=== PATIENT | female | born 1940 | race American Indian/Alaskan Native ===

== ENCOUNTER 2017-09-19 13:10 | Inpatient (IN) | payer MEDICARE ==
[2017-09-19 13:19] VITALS: BMI 33.5
--- NOTE | 2017-09-19 13:40 | C.PDOC ---
History Of Present Illness 77 year old female presents to ED complaining of worsening shortness of breath, dyspnea on exertion, and leg swelling for the past week. Denies chest pain, fever, or cough. Also complains of intermittent dizziness, is on HCTZ. Pt has history of CHF, prior PE but no anticoag for the past 2-3 years. WORSENING SOB, STONE LEG SWELLING X 1 WEEK. NO CP, FEVER, COUGH. ALSO CO INTERMIT DIZZYNESS. ON HCTZ. HO CHF, PRIOR PE BUT NO ANTICOAG X 2-3 YEARS. "YESTERDAY FELT LIKE ROOM SPINNING BUT NOW I JUST FEEL LIGHTHEADED" EXAM NARD NONTOXIC LUNGS CTA B/L NO W/R/R SPEAKING FUL LSENTENCES CV RRR 2+PITTING EDEMA BL REMAINDER NEG NON CPH PMD Time Seen by Provider: 09/19/17 13:24 Chief Complaint (Nursing): Cough, Cold, Congestion History Per: Patient History/Exam Limitations: no limitations Onset/Duration Of Symptoms: Days Current Symptoms Are (Timing): Still Present Exacerbating Factor(s): Exertion Associated Symptoms: Ankle/Leg Swelling, Dizziness. denies: Sweating, Chest Pain, Productive Cough, Heart Racing, Leg/Calf Pain Recent travel outside of the [place]: No Additional History Per: Patient Past Medical History Reviewed: Historical Data, Nursing Documentation, Vital Signs Vital Signs: Last Vital Signs Temp 98.7 F 09/19/17 13:50 Pulse 66 09/19/17 17:58 Resp 13 09/19/17 17:58 BP 157/68 H 09/19/17 17:58 Pulse Ox 97 09/19/17 18:06 - Medical History PMH: Back Problems (herniated disc), CHF, HTN Family History: States: Unknown Family Hx - Social History Hx Tobacco Use: No Hx Alcohol Use: No Hx Substance Use: No - Immunization History Hx Tetanus Toxoid Vaccination: No Hx Influenza Vaccination: No Hx Pneumococcal Vaccination: No Review Of Systems Except As Marked, All Systems Reviewed And Found Negative. Constitutional: Negative for: Fever, Chills Cardiovascular: Positive for: Edema. Negative for: Chest Pain, Palpitations Respiratory: Positive for: Shortness of Breath, SOB with Excertion. Negative for: Cough, Sputum Gastrointestinal: Negative for: Nausea, Vomiting, Abdominal Pain Neurological: Positive for: Dizziness. Negative for: Headache Physical Exam - Physical Exam Appears: Non-toxic, No Acute Distress Skin: Normal Color, Warm, Dry Head: Atraumatic, Normacephalic Eye(s): bilateral: Normal Inspection Oral Mucosa: Moist Neck: Normal ROM, Supple Chest: Symmetrical Cardiovascular: Rhythm Regular, No Murmur Respiratory: Normal Breath Sounds, No Accessory Muscle Use, No Rales, No Rhonchi , No Wheezing, Other (speaking in full sentences) Gastrointestinal/Abdominal: Soft, No Tenderness Extremity: Normal ROM, Pedal Edema (+2 pitting edema bilaterally), No Deformity Neurological/Psych: Oriented x3, Normal Speech ED Course And Treatment - Laboratory Results Result Diagrams: 09/19/17 14:21 09/19/17 14:21 ECG: Interpreted By Me ECG Rhythm: Sinus Bradycardia ECG Interpretation: Normal Rate From EC O2 Sat by Pulse Oximetry: 97 (RA) Pulse Ox Interpretation: Normal - Radiology CXR: Interpreted by Me CXR Interpretation: Yes: Other (ROTATED, TORTUOUS AORT) Progress - Re-Evaluation Re-evaluation Note: 09/19/17 15:36 CO PERSIST LIGHTHEADEDNESS. VSS. BNP NEG. WILL CTA 09/19/17 17:53 VSS. D/W DR VAHID NGUYEN SAW RUNNER WILL ADMIT 09/19/17 18:06 DIZZYNESS IMPROVED SP MECLIZINE. PT NOTED TO BE NEW ONSET ATRIAL FLUTTER ON MONITOR STRIP. APPEARS COMFORTABLE NAD 09/19/17 18:17 REPEAT EKG AFLUTTER @57 - Data Reviewed Data Reviewed: Lab, Diagnostic imaging, EKG, Old records Medical Decision Making Medical Decision Making: Plan: Blood work CXR/EKG Lasix Reassess Disposition Counseled Patient/Family Regarding: Studies Performed, Diagnosis - Disposition Disposition: HOSPITALIZED Disposition Time: 17:54 Condition: STABLE - POA Present On Arrival: None - Clinical Impression Clinical Impression: Dyspnea, Dizziness, New onset atrial flutter - Scribe Statement The provider has reviewed the documentation as recorded by the Scribe KP All medical record entries made by the Scribe were at my direction and personally dictated by me. I have reviewed the chart and agree that the record accurately reflects my personal performance of the history, physical exam, medical decision making, and the department course for this patient. I have also personally directed, reviewed, and agree with the discharge instructions and disposition. Decision To Admit - Pt Status Changed To: Hospital Disposition Of: Inpatient - Admit Certification Admit to Inpatient:: After my assessment, the patient will require hospitalization for at least two midnights. This is because of the severity of symptoms shown, intensity of services needed, and/or the medical risk in this patient being treated as an outpatient. - InPatient: Physician Admission Certification: I certify that this patient requires 2 or more midnights of care for the following reason:: SEE NOTE - . Bed Request Type: Telemetry Admitting Physician: Prerna Roy Patient Diagnosis: Dyspnea, Dizziness, New onset atrial flutter
[2017-09-19 14:23] LABS: RBC 3.62 Mil/uL (3.80-5.20); WHITE BLOOD COUNT 7.9 K/uL (4.8-10.8)
[2017-09-19 14:24] LABS: BASO # 0.1 K/uL (0.0-0.2); BASO % 0.7 % (0.0-2.0); EOS # 0.1 K/uL (0.0-0.7); EOS % 1.4 % (0.0-4.0); HEMOGLOBIN 9.8 g/dL (11.0-16.0); LYMPH # 2.3 K/uL (1.0-4.3); LYMPH % 28.4 % (20.0-40.0); MEAN CORPUSCULAR HEMOGLOBIN 27.1 pg (27.0-31.0); MEAN CORPUSCULAR HGB CONC 33.1 g/dL (33.0-37.0); MEAN PLATELET VOLUME 8.4 fL (7.2-11.7); MONO # 0.7 K/uL (0.0-0.8); MONO % 9.4 % (0.0-10.0); NEUT # 4.8 K/uL (1.8-7.0); NEUT % 60.1 % (50.0-75.0); NRBC % 0.1 % (0.0-2.0); RED CELL DISTRIBUTION WIDTH 17.8 % (11.5-14.5)
[2017-09-19 14:35] LABS: ALB/GLOB RATIO 1.1 (1.0-2.1); ALBUMIN 4.2 g/dL (3.5-5.0); CALCIUM 9.9 mg/dl (8.6-10.4); GFR AFRICAN-AMERICAN > 60; GFR NON-AFRICAN AMERICAN 54
[2017-09-19 14:39] LABS: ALT/SGPT 22 U/L (9-52); AST/SGOT 29 U/L (14-36); BLOOD UREA NITROGEN 15 mg/dL (7-17)
[2017-09-19 14:47] LABS: B-TYPE NATRIURETIC PEPTIDE 512 pg/mL (0-900)
[2017-09-19] MEDS ORDERED: Iodixanol 320 MG/ML 100 ML BOTTLE IV ONE (15:28)
--- NOTE | 2017-09-19 16:41 | CT ---
Date of service: 09/19/2017 PROCEDURE: CT HEAD WITHOUT CONTRAST. HISTORY: DIZZY COMPARISON: None available. TECHNIQUE: Axial computed tomography images were obtained through the head/brain without intravenous contrast. Radiation dose: Total exam DLP = 955.19 mGy-cm. This CT exam was performed using one or more of the following dose reduction techniques: Automated exposure control, adjustment of the mA and/or kV according to patient size, and/or use of iterative reconstruction technique. FINDINGS: HEMORRHAGE: No intracranial hemorrhage. BRAIN: The quinones-white matter differentiation is well preserved. There is no mass effect or definitive edema pattern appreciated including the cortex. There is proportional expansion of the ventriculosulcal and cisternal spaces however in a pattern most compatible with diffuse cerebral atrophy. No suspicious extra-axial fluid collection is identified in the midline brain anatomy appears grossly nonfocal as imaged. No atrophy or chronic microvascular ischemic changes. VENTRICLES: Unremarkable. No hydrocephalus. CALVARIUM: Unremarkable. PARANASAL SINUSES: Unremarkable as visualized. No significant inflammatory changes. MASTOID AIR CELLS: Right mastoid effusions identified. Left mastoid air cells appear clear. OTHER FINDINGS: None. IMPRESSION: No definite acute CT findings on standard noncontrast head CT. Age-appropriate neuro degenerative findings are appreciated as discussed above. Follow-up CT or MRI are available if clinically warranted.
--- NOTE | 2017-09-19 17:17 | CT ---
Date of service: 09/19/2017 PROCEDURE: CT Chest with contrast (Pulmonary Angiogram) HISTORY: SOB r/o PE COMPARISON: None available. TECHNIQUE: Axial computed tomography images were obtained of the chest in the pulmonary arterial phase of enhancement. Coronal and sagittal reformatted images were created and reviewed. Intravenous contrast dose: Visipaque 320, 100 cc Radiation dose: Total exam DLP = 586.98 mGy-cm. This CT exam was performed using one or more of the following dose reduction techniques: Automated exposure control, adjustment of the mA and/or kV according to patient size, and/or use of iterative reconstruction technique. FINDINGS: PULMONARY ARTERIES: Unremarkable. No pulmonary embolism. AORTA: No acute findings. No thoracic aortic aneurysm. LUNGS: The trachea and esophagus are displaced to the right by a large partially calcified mass. Please see (Other findings) section described below. No intrinsic nodule, mass or pulmonary consolidation. PLEURAL SPACES: Unremarkable. No effusion or pneumothorax. HEART: Unremarkable. No cardiomegaly. No significant pericardial effusion. LYMPH NODES: No lymphadenopathy. BONES, CHEST WALL: Unremarkable. No fracture or destructive lesion OTHER FINDINGS: Partially calcified mass at the substernal space at the thoracic inlet measuring 8.7 x 5.1 cm (transverse by anteroposterior dimensions potentially representing a substernal goiter. Follow-up nuclear thyroid scan may confirm. Trace cholelithiasis incidentally noted in gallbladder. IMPRESSION: 1. No CT evidence of pulmonary embolus. 2. No acute infiltrate, pleural effusion or pneumothorax. Shotty mediastinal lymph nodes are identified. 3. There is a large anterior superior mediastinal mass measuring 8.7 x 5.[address] the trachea and esophagus rightward potentially reflecting a partially calcified goiter. Follow-up elective in nuclear thyroid scan advised.
--- NOTE | 2017-09-19 18:21 | RAD ---
Date of service: 09/19/2017 PROCEDURE: CHEST RADIOGRAPH, 1 VIEW HISTORY: SOB COMPARISON: None available. FINDINGS: LUNGS: No definite infiltrate identified bilaterally. PLEURA: No pneumothorax or pleural fluid seen. CARDIOVASCULAR: Cardiac size is borderline enlarged. The upper mediastinum is quite widened which could be a function of thoracic aortic aneurysm or lymphadenopathy. Substernal thyroid gland is a possibility as well. See separate chest CT also performed 09/19/2017. OSSEOUS STRUCTURES: No significant abnormalities. VISUALIZED UPPER ABDOMEN: Normal. OTHER FINDINGS: None. IMPRESSION: No acute infiltrate pleural effusion or pneumothorax bilaterally. Prominent widening of the mediastinum is identified however. Please see separate chest CT performed 09/19/2017 as well as discussion above.
[2017-09-20] MEDS ORDERED: Simethicone 80 mg Chewtab PO ONE (04:32)
[2017-09-20 09:01] LABS: BASO % 0.4 % (0.0-2.0); EOS # 0.1 K/uL (0.0-0.7); EOS % 1.3 % (0.0-4.0); HEMOGLOBIN 9.2 g/dL (11.0-16.0); LYMPH # 2.7 K/uL (1.0-4.3); LYMPH % 35.2 % (20.0-40.0); MEAN CELL VOLUME 82.2 fL (81.0-99.0); MEAN CORPUSCULAR HEMOGLOBIN 26.7 pg (27.0-31.0); MEAN CORPUSCULAR HGB CONC 32.5 g/dL (33.0-37.0); MEAN PLATELET VOLUME 8.6 fL (7.2-11.7); MONO # 0.9 K/uL (0.0-0.8); MONO % 11.9 % (0.0-10.0); NEUT % 51.2 % (50.0-75.0); NRBC % 0.1 % (0.0-2.0); RBC 3.44 Mil/uL (3.80-5.20); RED CELL DISTRIBUTION WIDTH 17.6 % (11.5-14.5); WHITE BLOOD COUNT 7.8 K/uL (4.8-10.8)
[2017-09-20] MEDS: Enoxaparin 40 mg Syringe SC SCH (09:30)
[2017-09-20] MEDS ORDERED: HYDROCHLOROTHIAZIDE 25 MG PO SCH (10:00)
[2017-09-20 10:02] LABS: ALB/GLOB RATIO 1.1 (1.0-2.1); ALBUMIN 3.9 g/dL (3.5-5.0); CALCIUM 9.9 mg/dl (8.6-10.4)
--- NOTE | 2017-09-20 11:13 | CP.PCM.CON ---
History of Present Illness - History of Present Illness History of Present Illness: I was asked to see patient by Dr Roy. Patient is a 77 year old female with PMH HTN, hyperchoelsterolemia who presents with dyspnea on exertion. The patient states symptoms occur after walking one block. She has to stop for symptoms to improve. Her symptoms occur after walking one block. In the ER, EKG revealed atrial fibrillation. The patient has no documented history of afib, Review of Systems - Constitutional Constitutional: absent: As Per HPI, Anorexia, Chills, Daytime Sleepiness, Excessive Sweating, Fatigue, Fever, Frequent Falls, Headache, Increased Appetite , Lethargy, Malaise, Night Sweats, Snoring, Sleep Apnea, Weight Gain, Weight Loss, Weakness, Other - EENT Eyes: absent: As Per HPI, Blind Spots, Blurred Vision, Change in Vision, Decreased Night Vision, Diplopia, Discharge, Dry Eye, Exophthalmos, Floaters, Irritation, Itchy Eyes, Loss of Peripheral Vision, Pain, Photophobia, Requires Corrective Lenses, Sees Flashes, Spots in Vision, Tunnel Vision, Other Visual Disturbances, Loss of Vision, Other Ears: absent: As Per HPI, Decreased Hearing, Ear Discharge, Ear Pain, Tinnitus, Abnormal Hearing, Disequilibrium, Dizziness, Other Nose/Mouth/Throat: absent: As Per HPI, Epistaxis, Nasal Congestion, Nasal Discharge, Nasal Obstruction, Nasal Trauma, Nose Pain, Post Nasal Drip, Sinus Pain, Sinus Pressure, Bleeding Gums, Change in Voice, Dental Pain, Dry Mouth, Dysphagia, Halitosis, Hoarsness, Lip Swelling, Mouth Lesions, Mouth Pain, Odynophagia, Sore Throat, Throat Swelling, Tongue Swelling, Facial Pain, Neck Pain, Neck Mass, Other - Breasts Breasts: absent: As Per HPI, Change in Shape, Mass, Pain, Nipple Discharge, Nipple Inversion, Skin Changes, Swelling, Other - Cardiovascular Cardiovascular: Dyspnea, Dyspnea on Exertion - Respiratory Respiratory: Dyspnea - Gastrointestinal Gastrointestinal: absent: As Per HPI, Abdominal Pain, Belching, Bloating, Change in Bowel Habits, Change in Stool Character, Coffee Ground Emesis, Constipation, Cramping, Diarrhea, Dyspepsia, Dysphagia, Early Satiety, Excessive Flatus, Fecal Incontinence, Heartburn, Hematemesis, Hematochezia, Loose Stools, Melena, Nausea, Odynophagia, Temesmus, Vomiting, Other - Genitourinary Genitourinary: absent: As Per HPI, Change in Urinary Stream, Difficulty Urinating, Dysuria, Flank Pain, Hematuria, Pyuria, Nocturia, Urinary Incontinence, Urinary Frequency, Urinary Hesitance, Urinary Urgency, Voiding Freq/Small Amts, Freq UTI, Hx Renal/Bladder Calculi, Hx /Renal Surgery, Bladder Distension, Other - Musculoskeletal Musculoskeletal: absent: As Per HPI, Abnormal Gait, Arthralgias, Atrophy, Back Pain, Deformity, Joint Swelling, Limited Range of Motion, Loss of Height, Muscle Cramps, Muscle Weakness, Myalgias, Neck Pain, Numbness, Radiating Pain into Limb, Stiffness, Tingling, Other - Integumentary Integumentary: absent: As Per HPI, Acne, Alopecia, Bleeding Lesions, Change in Hair, Change in Nails, Change in Pigmentation, Changing Lesions, Dry Skin, Erythema, Furuncle, Hirsutism, Lesions, New Lesions, Non-Healing Lesions, Photosensitivity, Pruritus, Rash, Skin Pain, Skin Ulcer, Sores, Striae, Swelling , Unusual Bruising, Wounds, Jaundice, Other - Neurological Neurological: absent: As Per HPI, Abnormal Gait, Abnormal Hearing, Abnormal Movements, Abnormal Speech, Behavioral Changes, Burning Sensations, Confusion, Convulsions, Disequilibrium, Dizziness, Numbness, Focal Weakness, Frequent Falls , Headaches, Lack of Coordination, Loss of Vision, Memory Loss, Paresthesias, Radicular Pain, Restless Legs, Sensory Deficit, Syncope, Tingling, Tremor, Vertigo, Weakness, Other Visual Disturbances, Other - Psychiatric Psychiatric: absent: As Per HPI, Abnormal Sleep Pattern, Anhedonia, Anxiety, Auditory Hallucinations, Behavioral Changes, Change in Appetite, Change in Libido, Confusion, Depression, Difficulty Concentrating, Hallucinations, Homicidal Ideation, Hopelessness, Irritability, Memory Loss, Mood Swings, Panic Attacks, Paranoia, Suicidal Ideation, Visual Hallucinations, Tactile Hallucinations, Other - Endocrine Endocrine: absent: As Per HPI, Change in Body Appearance, Change in Libido, Cold Intolorance, Deepening of Voice, Excessive Sweating, Fatigue, Flushing, Heat Intolorance, Increase in Ring/Shoe/Hat Size, Palpitations, Polydipsia, Polyphagia, Polyuria, Other - Hematologic/Lymphatic Hematologic: absent: As Per HPI, Easy Bleeding, Easy Bruising, Lymphadenopathy, Other Past Patient History - Past Medical History & Family History Past Medical History?: Yes - Past Social History Smoking Status: Never Smoked - CARDIAC Hx Congestive Heart Failure: Yes Hx Hypertension: Yes - PULMONARY Hx Respiratory Disorders: No - NEUROLOGICAL Hx Neurological Disorder: No - HEENT Hx HEENT Problems: Yes Hx Glaucoma: Yes - RENAL Hx Chronic Kidney Disease: No - ENDOCRINE/METABOLIC Hx Endocrine Disorders: No - HEMATOLOGICAL/ONCOLOGICAL Hx Anemia: Yes - INTEGUMENTARY Hx Dermatological Problems: No - MUSCULOSKELETAL/RHEUMATOLOGICAL Hx Back Pain: Yes (sciatica) Hx Falls: No - GASTROINTESTINAL Hx Gastrointestinal Disorders: No - GENITOURINARY/GYNECOLOGICAL Hx Genitourinary Disorders: No - PSYCHIATRIC Hx Substance Use: No - SURGICAL HISTORY Hx Surgeries: Yes Other/Comment: R kidney removed. - ANESTHESIA Hx Anesthesia: Yes Hx Anesthesia Reactions: No Hx Malignant Hyperthermia: No Has any member of the family had a problem w/ anesthesia?: No Meds Allergies/Adverse Reactions: Allergies Allergy/AdvReac Type Severity Reaction Status Date / Time No Known Allergies Allergy Verified 09/19/17 13:18 - Medications Medications: Current Medications Aspirin (Ecotrin) 81 mg PO DAILY [facility] Last Admin: 09/20/17 09:30 Dose: 81 mg Carvedilol (Coreg) 25 mg PO BID [facility] Last Admin: 09/20/17 10:38 Dose: 25 mg Enoxaparin Sodium (Lovenox) 40 mg SC DAILY [facility] Last Admin: 09/20/17 09:30 Dose: 40 mg Hydrochlorothiazide (Hydrodiuril) 25 mg PO DAILY [facility] Last Admin: 09/20/17 09:31 Dose: 25 mg Losartan Potassium (Cozaar) 50 mg PO DAILY [facility] Last Admin: 09/20/17 10:38 Dose: 50 mg Zolpidem Tartrate (Ambien) 5 mg PO HS [facility] Last Admin: 09/19/17 22:33 Dose: 5 mg Physical Exam - Constitutional Appears: Non-toxic - Head Exam Head Exam: NORMAL INSPECTION - Eye Exam Eye Exam: Normal appearance - ENT Exam ENT Exam: Mucous Membranes Moist - Neck Exam Neck exam: Positive for: Full Rom - Respiratory Exam Respiratory Exam: NORMAL BREATHING PATTERN - Cardiovascular Exam Cardiovascular Exam: REGULAR RHYTHM - GI/Abdominal Exam GI & Abdominal Exam: Normal Bowel Sounds - Rectal Exam Rectal Exam: Deferred - Extremities Exam Extremities exam: Positive for: pedal edema - Back Exam Back exam: NORMAL INSPECTION - Neurological Exam Neurological exam: Alert, Oriented x3 - Psychiatric Exam Psychiatric exam: Normal Affect - Skin Skin Exam: Normal Color Results - Vital Signs Recent Vital Signs: Last Vital Signs Temp 97.8 F 09/20/17 07:55 Pulse 71 09/20/17 09:32 Resp 20 09/20/17 07:55 BP 123/73 09/20/17 10:38 Pulse Ox 97 09/20/17 07:55 - Labs Result Diagrams: 09/20/17 08:42 09/20/17 08:00 Labs: Laboratory Results - last 24 hr 09/19/17 09/19/17 09/20/17 14:21 14:21 08:00 WBC 7.9 RBC 3.62 L Hgb 9.8 L D Hct 29.7 L MCV 82.0 D MCH 27.1 MCHC 33.1 RDW 17.8 H Plt Count 235 MPV 8.4 Neut % (Auto) 60.1 Lymph % (Auto) 28.4 [place] % (Auto) 9.4 Eos % (Auto) 1.4 Baso % (Auto) 0.7 Neut # (Auto) 4.8 Lymph # (Auto) 2.3 [place] # (Auto) 0.7 Eos # (Auto) 0.1 Baso # (Auto) 0.1 Sodium 140 142 Potassium 4.3 4.1 Chloride 104 104 Carbon Dioxide 26 29 Anion Gap 15 13 BUN 15 17 Creatinine 1.0 1.2 Est GFR ( Amer) > 60 53 Est GFR (Non-Af Amer) 54 43 Random Glucose 116 H 99 Calcium 9.9 9.9 Total Bilirubin 0.7 0.5 AST 29 25 ALT 22 18 Alkaline Phosphatase 68 61 Troponin I < 0.0120 NT-Pro-B Natriuret Pep 512 Total Protein 8.1 7.4 Albumin 4.2 3.9 Globulin 3.9 3.5 Albumin/Globulin Ratio 1.1 1.1 09/20/17 08:42 WBC 7.8 RBC 3.44 L Hgb 9.2 L Hct 28.3 L MCV 82.2 MCH 26.7 L MCHC 32.5 L RDW 17.6 H Plt Count 243 MPV 8.6 Neut % (Auto) 51.2 Lymph % (Auto) 35.2 [place] % (Auto) 11.9 H Eos % (Auto) 1.3 Baso % (Auto) 0.4 Neut # (Auto) 4.0 Lymph # (Auto) 2.7 [place] # (Auto) 0.9 H Eos # (Auto) 0.1 Baso # (Auto) 0.0 Sodium Potassium Chloride Carbon Dioxide Anion Gap BUN Creatinine Est GFR ( Amer) Est GFR (Non-Af Amer) Random Glucose Calcium Total Bilirubin AST ALT Alkaline Phosphatase Troponin I NT-Pro-B Natriuret Pep Total Protein Albumin Globulin Albumin/Globulin Ratio - EKG Data EKG Interpreted by: Myself Assessment & Plan (1) Paroxysmal atrial fibrillation Assessment and Plan: current;ly in sinus rhythm. will evaluate LV function. can give Lovenox. Status: Acute (2) Dyspnea Assessment and Plan: recommend echocardiogram Status: Acute (3) HTN (hypertension) Assessment and Plan: Blood pressure therapy Status: Acute
--- NOTE | 2017-09-21 08:12 | CP.PCM.PN ---
Subjective - Date & Time of Evaluation Date of Evaluation: 09/21/17 Time of Evaluation: 08:00 - Subjective Subjective: patient has no chest pain or dyspnea at rest. Objective - Vital Signs/Intake and Output Vital Signs (last 24 hours): Temp Pulse Resp BP Pulse Ox 97.9 F 83 18 132/85 99 09/21/17 07:00 09/21/17 07:00 09/21/17 07:00 09/21/17 07:00 09/21/17 07:00 Intake and Output: 09/21/17 09/21/17 06:59 18:59 Intake Total 320 Balance 320 - Medications Medications: Current Medications Acetaminophen (Tylenol 325mg Tab) 650 mg PO Q6 PRN PRN Reason: Pain, moderate (4-7) Last Admin: 09/21/17 02:34 Dose: 650 mg Aspirin (Ecotrin) 81 mg PO DAILY [facility] Last Admin: 09/20/17 09:30 Dose: 81 mg Carvedilol (Coreg) 25 mg PO BID [facility] Last Admin: 09/20/17 18:00 Dose: Not Given Enoxaparin Sodium (Lovenox) 40 mg SC DAILY [facility] Last Admin: 09/20/17 09:30 Dose: 40 mg Hydrochlorothiazide (Hydrodiuril) 25 mg PO DAILY [facility] Last Admin: 09/20/17 09:31 Dose: 25 mg Losartan Potassium (Cozaar) 50 mg PO DAILY [facility] Last Admin: 09/20/17 10:38 Dose: 50 mg Zolpidem Tartrate (Ambien) 5 mg PO [facility] Last Admin: 09/20/17 22:25 Dose: 5 mg - Labs Labs: 09/20/17 08:42 09/20/17 08:00 - Constitutional Appears: Non-toxic - Head Exam Head Exam: NORMAL INSPECTION - Eye Exam Eye Exam: Normal appearance - ENT Exam ENT Exam: Mucous Membranes Moist - Neck Exam Neck Exam: Full ROM - Respiratory Exam Respiratory Exam: NORMAL BREATHING PATTERN - Cardiovascular Exam Cardiovascular Exam: REGULAR RHYTHM - GI/Abdominal Exam GI & Abdominal Exam: Normal Bowel Sounds - Rectal Exam Rectal Exam: Deferred - Extremities Exam Extremities Exam: absent: Pedal Edema - Back Exam Back Exam: NORMAL INSPECTION - Neurological Exam Neurological Exam: Alert - Psychiatric Exam Psychiatric exam: Normal Affect - Skin Skin Exam: Normal Color Assessment and Plan (1) Paroxysmal atrial fibrillation Assessment & Plan: currently in sinus rhythm. will obtain echocardiogram Status: Acute (2) Dyspnea Assessment & Plan: unclear etiology. await echocardiogram Status: Acute (3) HTN (hypertension) Assessment & Plan: blood pressure control Status: Acute
[2017-09-21] MEDS: Enoxaparin 40 mg Syringe SC SCH (10:49)
--- NOTE | 2017-09-21 11:41 | HP ---
HISTORY OF PRESENT ILLNESS: A 77-year-old white female with history of thromboembolism, heart failure of some sort, who was admitted to the hospital with chief complaint of acute tiredness. The patient came to hospital, advised admission. PHYSICAL EXAMINATION: GENERAL: The patient is awake, alert, oriented. VITAL SIGNS: Temperature 98, pulse 90. HEENT: Within normal limits. NECK: Supple. CHEST: Symmetrical. HEART: Regular. ABDOMEN: Soft. EXTREMITIES: No edema. ASSESSMENT AND PLAN: The patient suffers from shortness of breath, rule out heart failure, rule out cor pulmonale. Outside study for sleep apnea. The patient on bed rest, supportive care. Cardiac evaluation. Prerna Roy MD
--- NOTE | 2017-09-21 12:58 | CP.PCM.PN ---
Subjective - Date & Time of Evaluation Date of Evaluation: 09/21/17 Time of Evaluation: 12:56 - Subjective Subjective: PGY-[address] Bolton's Service Patient seen and examined at bedside. Per nursing no acute events occurred overnight. Patient reports an improvement in chest pain today. She denies any palpitations, syncopal episodes, abdominal pain ,or any other complaints. Objective - Vital Signs/Intake and Output Vital Signs (last 24 hours): Temp Pulse Resp BP Pulse Ox 97.9 F 60 18 126/73 99 09/21/17 07:00 09/21/17 07:00 09/21/17 07:00 09/21/17 10:50 09/21/17 07:00 Intake and Output: 09/21/17 09/21/17 06:59 18:59 Intake Total 320 Balance 320 - Medications Medications: Current Medications Acetaminophen (Tylenol 325mg Tab) 650 mg PO Q6 PRN PRN Reason: Pain, moderate (4-7) Last Admin: 09/21/17 10:53 Dose: 650 mg Aspirin (Ecotrin) 81 mg PO DAILY [facility] Last Admin: 09/21/17 10:49 Dose: 81 mg Carvedilol (Coreg) 25 mg PO BID [facility] Last Admin: 09/21/17 10:50 Dose: Not Given Enoxaparin Sodium (Lovenox) 40 mg SC DAILY [facility] Last Admin: 09/21/17 10:49 Dose: 40 mg Hydrochlorothiazide (Hydrodiuril) 25 mg PO DAILY [facility] Last Admin: 09/21/17 10:49 Dose: 25 mg Losartan Potassium (Cozaar) 50 mg PO DAILY [facility] Last Admin: 09/21/17 10:49 Dose: 50 mg Zolpidem Tartrate (Ambien) 5 mg PO HS [facility] Last Admin: 09/20/17 22:25 Dose: 5 mg - Labs Labs: 09/20/17 08:42 09/20/17 08:00 Assessment and Plan - Assessment and Plan (Free Text) Assessment: 77 year old female with a past medical history of hypertension, hypercholesterolemia, and pulmonary embolus(previously on Xarelto) who was admitted for paroxysmal Atrial fibrillation. Plan: 1. Paroxysmal atrial fibrillation -EKG upon admission showed atrial flutter -Cardiology consulted. Help appreciated. -Echocardiogram ordered. Will f/u with results. 2.Mediastinal mass Chest CT: No CT evidence of pulmonary embolus. 2. No acute infiltrate, pleural effusion or pneumothorax. Shotty mediastinal lymph nodes are identified. 3. There is a large anterior superior mediastinal mass measuring 8.7 x 5.1 [address] the trachea and esophagus rightward potentially reflecting a partially calcified goiter. Follow-up elective in nuclear thyroid scan advised. -TSH ordered. Will f/u with results. -Cardiothoracic surgery( Dr. Li) consulted. Help appreciated. PPX Protonix Heparin Plan discussed with Dr. Roy. Tyler Tanner, PGY-2
--- NOTE | 2017-09-22 07:25 | CP.PCM.CON ---
History of Present Illness - History of Present Illness History of Present Illness: 77F presented to [facility] ED with complaints of SOB/dyspnea and LE swelling. Cardiothoracic surgery consulted after anterior mediastinal mass was noted on CT chest. At times of examination patient denied dysphonia, dysphagia, or having SOB. She states her SOB/dyspnea has improved since admission as well as LE swelling. Patient denied fever/chills, nausea/vomiting, abdominal pain, dysuria. At this time patient is refusing any kind of surgical intervention. Review of Systems - Review of Systems Review of Systems: 12 pt ROS unremarkable except as stated in HPI Past Patient History - Past Medical History & Family History Past Medical History?: Yes - Past Social History Smoking Status: Never Smoked - CARDIAC Hx Congestive Heart Failure: Yes Hx Hypertension: Yes - PULMONARY Hx Respiratory Disorders: No - NEUROLOGICAL Hx Neurological Disorder: No - HEENT Hx HEENT Problems: Yes Hx Glaucoma: Yes - RENAL Hx Chronic Kidney Disease: No - ENDOCRINE/METABOLIC Hx Endocrine Disorders: No - HEMATOLOGICAL/ONCOLOGICAL Hx Anemia: Yes - INTEGUMENTARY Hx Dermatological Problems: No - MUSCULOSKELETAL/RHEUMATOLOGICAL Hx Back Pain: Yes (sciatica) Hx Falls: No - GASTROINTESTINAL Hx Gastrointestinal Disorders: No - GENITOURINARY/GYNECOLOGICAL Hx Genitourinary Disorders: No - PSYCHIATRIC Hx Substance Use: No - SURGICAL HISTORY Hx Surgeries: Yes Other/Comment: R kidney removed. - ANESTHESIA Hx Anesthesia: Yes Hx Anesthesia Reactions: No Hx Malignant Hyperthermia: No Has any member of the family had a problem w/ anesthesia?: No Meds Allergies/Adverse Reactions: Allergies Allergy/AdvReac Type Severity Reaction Status Date / Time No Known Allergies Allergy Verified 09/19/17 13:18 - Medications Medications: Current Medications Acetaminophen (Tylenol 325mg Tab) 650 mg PO Q6 PRN PRN Reason: Pain, moderate (4-7) Last Admin: 09/22/17 02:31 Dose: 650 mg Aspirin (Ecotrin) 81 mg PO DAILY [facility] Last Admin: 09/21/17 10:49 Dose: 81 mg Carvedilol (Coreg) 25 mg PO BID [facility] Last Admin: 09/21/17 17:00 Dose: Not Given Enoxaparin Sodium (Lovenox) 40 mg SC DAILY [facility] Last Admin: 09/21/17 10:49 Dose: 40 mg Hydrochlorothiazide (Hydrodiuril) 25 mg PO DAILY [facility] Last Admin: 09/21/17 10:49 Dose: 25 mg Losartan Potassium (Cozaar) 50 mg PO DAILY [facility] Last Admin: 09/21/17 10:49 Dose: 50 mg Zolpidem Tartrate (Ambien) 5 mg PO HS [facility] Last Admin: 09/21/17 21:19 Dose: 5 mg Physical Exam - Constitutional Appears: Non-toxic, No Acute Distress - Head Exam Head Exam: NORMOCEPHALIC - Eye Exam Eye Exam: Normal appearance - ENT Exam ENT Exam: Mucous Membranes Moist - Neck Exam Additional comments: No palpable thyroid - Respiratory Exam Respiratory Exam: NORMAL BREATHING PATTERN. absent: Accessory Muscle Use - Cardiovascular Exam Cardiovascular Exam: +S1, +S2 - GI/Abdominal Exam GI & Abdominal Exam: Soft - Neurological Exam Neurological exam: Alert, Oriented x3 - Psychiatric Exam Psychiatric exam: Normal Mood - Skin Skin Exam: Dry, Intact, Warm Results - Vital Signs Recent Vital Signs: Last Vital Signs Temp 97.8 F 09/21/17 23:15 Pulse 58 L 09/22/17 01:00 Resp 20 09/21/17 23:15 BP 115/71 09/21/17 23:15 Pulse Ox 100 09/21/17 23:15 - Labs Result Diagrams: 09/20/17 08:42 09/20/17 08:00 Labs: Laboratory Results - last 24 hr 09/20/17 09/21/17 09/21/17 11:31 17:10 17:10 POC Glucose (mg/dL) 94 Free T4 1.05 TSH 3rd Generation 0.54 Assessment & Plan - Assessment and Plan (Free Text) Assessment: 77F with anterior mediastinal mass, ?goiter/thymoma Plan: Patient refusing any kind of surgical intervention at this present time F/u Thyroid panel No need for acute surgical intervention at this present time Patient may follow up with Dr. Li as outpatient for further evaluation of mass and discuss options/management Office #: [phone] D/w Dr. Guillermo Milan PGY3
[2017-09-22] MEDS: Enoxaparin 40 mg Syringe SC SCH (10:32)
--- NOTE | 2017-09-22 13:18 | CP.PCM.PN ---
Subjective - Date & Time of Evaluation Date of Evaluation: 09/22/17 Time of Evaluation: 13:17 - Subjective Subjective: PGY-[address] Bolton's Service Patient seen and examined at bedside. Per nursing no acute events occurred overnight. Patient reports an improvement in chest pain today. She denies any palpitations, syncopal episodes, abdominal pain ,or any other complaints. Objective - Vital Signs/Intake and Output Vital Signs (last 24 hours): Temp Pulse Resp BP Pulse Ox 98.3 F 68 22 160/81 H 100 09/22/17 07:30 09/22/17 07:30 09/22/17 07:30 09/22/17 10:31 09/22/17 07:30 Intake and Output: 09/22/17 09/22/17 06:59 18:59 Intake Total 240 Output Total 200 Balance 40 - Medications Medications: Current Medications Acetaminophen (Tylenol 325mg Tab) 650 mg PO Q6 PRN PRN Reason: Pain, moderate (4-7) Last Admin: 09/22/17 08:34 Dose: 650 mg Aspirin (Ecotrin) 81 mg PO DAILY [facility] Last Admin: 09/22/17 10:32 Dose: 81 mg Carvedilol (Coreg) 25 mg PO BID [facility] Last Admin: 09/22/17 10:31 Dose: 25 mg Enoxaparin Sodium (Lovenox) 40 mg SC DAILY [facility] Last Admin: 09/22/17 10:32 Dose: 40 mg Hydrochlorothiazide (Hydrodiuril) 25 mg PO DAILY [facility] Last Admin: 09/22/17 10:31 Dose: 25 mg Losartan Potassium (Cozaar) 50 mg PO DAILY [facility] Last Admin: 09/22/17 10:31 Dose: 50 mg Zolpidem Tartrate (Ambien) 5 mg PO HS [facility] Last Admin: 09/21/17 21:19 Dose: 5 mg - Labs Labs: 09/20/17 08:42 09/20/17 08:00 - Head Exam Head Exam: ATRAUMATIC, NORMAL INSPECTION, NORMOCEPHALIC - Eye Exam Eye Exam: EOMI, Normal appearance, PERRL Pupil Exam: NORMAL ACCOMODATION, PERRL - ENT Exam ENT Exam: Mucous Membranes Moist, Normal Oropharynx - Respiratory Exam Respiratory Exam: Clear to Ausculation Bilateral, NORMAL BREATHING PATTERN - Cardiovascular Exam Cardiovascular Exam: REGULAR RHYTHM, +S1, +S2 - GI/Abdominal Exam GI & Abdominal Exam: Soft, Normal Bowel Sounds. absent: Rigid, Hyperactive Bowel Sounds - Extremities Exam Extremities Exam: Full ROM. absent: Joint Swelling, Pedal Edema, Tenderness - Back Exam Back Exam: NORMAL INSPECTION. absent: CVA tenderness (R), paraspinal tenderness - Neurological Exam Neurological Exam: Alert, Awake, CN II-XII Intact, Normal Gait, Oriented x3 - Psychiatric Exam Psychiatric exam: Normal Affect, Normal Mood - Skin Skin Exam: Dry, Intact, Normal Color Assessment and Plan - Assessment and Plan (Free Text) Plan: 1. Paroxysmal atrial fibrillation -EKG upon admission showed atrial flutter -Cardiology consulted. Help appreciated. -Echocardiogram ordered. Will f/u with results. 2.Mediastinal mass Chest CT: No CT evidence of pulmonary embolus. 2. No acute infiltrate, pleural effusion or pneumothorax. Shotty mediastinal lymph nodes are identified. 3. There is a large anterior superior mediastinal mass measuring 8.7 x 5.1 [address] the trachea and esophagus rightward potentially reflecting a partially calcified goiter. Follow-up elective in nuclear thyroid scan advised. -TSH ordered. Will f/u with results. -Cardiothoracic surgery( Dr. Li) consulted. Help appreciated. PPX Protonix Heparin Plan discussed with Dr. Roy. Dispo: Per last conversation with patient I informed patient of all imaging studies including, EKG, Echocardiogram, and the remainder of the lab values. Patient was also informed from surgery options regarding findings found on Chest CT. Patient refused further treatment regarding mediastinal mass. Patient was discharged with the following instructions. Patient reports not wanting to take home medications upon discharge. Enforced the importance of taking all of her medications and the risk if she were to stop taking medications. Patient stated she only wanted to take her Ambien pill upon discharge. Re-enforced that the patient must take the medications for her pre- existing conditions to prevent possible future cardiac events. Patient understood and was unsure whether she would maintain compliance with home medications. Discharge Instructions: 1.Follow up PMD within 5-7 days of discharge. 2.Follow up with Cardiothoracic surgery (Dr. Li) within 2 weeks of discharge. 3.Advised patient to return to hospital for any new or worsening symptoms. 4. Follow up with Echocardiogram with Dr. Fink (Structural Design Engineer) or PMD. Will notify patient of results when they return. Medications: 1.Aspirin 81 mg PO Daily, #30, No refills 2. Coreg 25mg PO BID, #60, No refills 3.Hydrochlorothiazide 25 MG PO Daily, #30, No refills 4. Ambien 5 mg PO HS, #14, No refills. Tyler Tanner, PGY-2
--- NOTE | 2017-09-22 14:07 | CARD ---
APPROVED REPORT Date of service: 09/21/2017 EXAM: Two-dimensional and M-mode echocardiogram with Doppler and color Doppler. Other Information Quality : TDSRhythm : INDICATION Dizziness and Vertigo Dyspnea 2D DIMENSIONS IVSd1.2 (0.7-1.1cm)LVDd3.7 (3.9-5.9cm) LVOT Diameter1.7 (1.8-2.4cm)PWd1.1 (0.7-1.1cm) LVDs2.3 (2.5-4.0cm)FS (%) 36.3 % LVEF (%)66.8 (>50%) M-Mode DIMENSIONS Left Atrium (MM)3.25 (2.5-4.0cm)IVSd1.18 (0.7-1.1cm) Aortic Root2.87 (2.2-3.7cm)LVDd4.84 (4.0-5.6cm) Aortic Cusp Exc.1.23 (1.5-2.0cm)PWd1.05 (0.7-1.1cm) FS (%) 43 %LVDs2.74 (2.0-3.8cm) LVEF (%)74 (>50%) Mitral Valve MV E Leozbost219.9cm/sMV A Avgbktyg17.2cm/sE/A ratio1.8 TDI E/Lateral E'0.0E/Medial E'0.0 Tricuspid Valve TR Peak [id number]/sTR Peak [id number] <Conclusion> Technically very difficult study may adversely impact interpretation If inconsistent with clinical findings would obtain an alternative imaging study Left ventricle: thickness: normal; size: normal; overall ejection fraction: 65%: diastolic filling pressures: elevated Mitral valve: annulus: MAC: leaflets: calcific thickening: excursion: normal; no significant trans-mitral gradient: No significant incompetence: left atrium: normal Aortic valve: leaflets: calcific thickening: excursion: normal; 20mmHg gradient; trans-aortic gradient:mild incompetence: aortic root: normal Right sided Structures: Pulmonary valve: normal; no significant incompetence; Tricuspid valve: normal; mild incompetence: Intra-cardiac hemodynamics: pulmonary systolic pressures:42mmHg; central venous pressures: indeterminate No pericardial effusion
[2017-09-22 15:56] VITALS: RESP 20; TEMP 98.2; O2SAT 96
[2017-09-22 17:46] VITALS: BP 123/75
[2017-09-22 17:47] VITALS: PULSE 60
--- NOTE | 2017-09-25 08:53 | DS ---
The patient came to the hospital with a chief complaint of weakness, fatigue, and shortness of breath. The patient getting bedrest, supportive care, oxygen. The patient showed gradual improvement. Discharged, to be followed as outpatient. DIAGNOSIS: Dyspnea, chronic obstructive pulmonary disease, steroid . rPerna Roy MD
--- NOTE | 2017-09-27 07:40 | CARD ---
APPROVED REPORT Date of service: 09/19/2017 EKG Measurement Heart [id number] <Conclusion> Sinus bradycardia with sinus arrhythmia Nonspecific ST abnormality Abnormal ECG
--- NOTE | 2017-09-27 07:40 | CARD ---
APPROVED REPORT Date of service: 09/19/2017 EKG Measurement Heart [id number] <Conclusion> Atrial fibrillation with slow ventricular response Nonspecific ST and T wave abnormality Abnormal ECG
== END 2017-09-22 19:45 | disposition home or self-care (01) | DRG 308 ==
LOC: C.ER 13:10 → OBSVTOIN 17:55 → C.9E 17:55 → C.6T 18:29
PROVIDERS: ADMIT Internal Medicine Pulmonary Disease; ATTEND Internal Medicine Pulmonary Disease
DX: I48.0 Paroxysmal atrial fibrillation (principal); J98.59 Other diseases of mediastinum, not elsewhere classified; J44.9 Chronic obstructive pulmonary disease, unspecified; I11.0 Hypertensive heart disease with heart failure; I48.92 Unspecified atrial flutter; I50.9 Heart failure, unspecified; E78.00 Pure hypercholesterolemia, unspecified; Z86.711 Personal history of pulmonary embolism; Z86.718 Personal history of other venous thrombosis and embolism